=== PATIENT | male | born 1955 | race African-American/Black ===

== ENCOUNTER 2019-06-01 01:26 | Emergency (ER) | payer OTHER ==
[2019-06-01] MEDS ORDERED: ALTEPLASE 2 MG/VIAL IV ONE (02:45)
[2019-06-01] MEDS ORDERED: WATER FOR INJ,STERILE 10 ML ONE (02:53)
--- NOTE | 2019-06-01 03:23 | ER ---
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 to lower pelvic area, drain in place. Coronavirus screen: Proceed with normal triage. Ebola Screen: No symptoms or risks identified at this time. Initial Sepsis Screen: Does the patient meet any 2 criteria? No. Patient's initial sepsis screen is negative. Does the patient have a suspected source of infection? No. Patient's initial sepsis screen is negative. Risk Assessment: Do you want to hurt yourself or someone else? Patient reports no desire to harm self or others. Onset of symptoms was June 01, 2019. 01:43 Method Of Arrival: Wheelchair lp1 01:43 Acuity: ELIZABETH 4 lp1 Historical: - Allergies: 01:51 No Known Allergies; lp1 - Home Meds: 01:51 vancomycin intravenous 1200 mg intravenous every 12 hours [Active]; amlodipine 10 mg lp1 tab 1 tab once daily [Active]; losartan 25 mg oral tab 1 tab once daily [Active]; Eliquis 5 mg oral tab 1 tab 2 times per day [Active]; melatonin 5 mg Oral tab nightly [Active]; metoprolol tartrate 25 mg Oral tab 1 tab 2 times per day [Active]; Lasix Oral [Active]; - PMHx: 01:51 anoxic brain injury; L sided weakness; Prostate cancer; Kidney stones; Anemia; lp1 - PSHx: 01:51 back surgery; Prostatectomy; Rotator cuff surgery; Drain to pelvic area; lp1 - Immunization history:: Adult Immunizations up to date. - Social history:: Smoking status: Patient denies any tobacco usage or history of. Screenin:51 Abuse screen: Denies threats or abuse. Denies injuries from another. Nutritional lp1 screening: No deficits noted. Tuberculosis screening: No symptoms or risk factors identified. 01:57 Fall Risk No fall in past 12 months (0 pts). Secondary diagnosis (15 points) impaired rv mobility, No IV (0 pts). Ambulatory Aid- Crutches/Cane/Walker (15 pts). Gait- Impaired (20 pts.). Mental Status- Oriented to own ability (0 pts). Total Jessiac Fall Scale indicates High Risk Score (45 or more points). Fall prevention measures have been instituted. Side Rails Up X 2 Family Present and informed to notify staff if the need to leave the bedside As available patient and family educated on Fall Prevention Program and Strategies. Assessment: 01:56 General: Appears in no apparent distress. comfortable, Behavior is calm, cooperative. rv Pain: Denies pain. Neuro: Level of Consciousness is awake, alert, obeys commands, Oriented to person, place, time, situation. Cardiovascular: Patient's skin is warm and dry. Respiratory: Airway is patent. : TUBE DRAINING FLUIDS AROUND THE BLADDER. Derm: Skin is intact. 01:58 Reassessment: PICC LINE ASSESSED. RED PORT IS FLUSHING AND WITH GOOD BLOOD RETURN. THE rv OTHER PORT IS HARD TO FLUSH AND PULL BLOOD, BUT STILL FLUSHES WITH ENOUGH PRESSURE AND ABLE TO PULL 3ML OF BLOOD. 03:44 Reassessment: Patient and/or family updated on plan of care and expected duration. Pain ea level reassessed. Patient is alert, oriented x 3, equal unlabored respirations, skin warm/dry/pink. Discharge instruction given to patient and family, both verbalized the understanding of instruction. Pt left ED via wheelchair accompanied by family. Vital Signs: 01:43 BP 156 / 94; Pulse 98; Resp 18; Temp 98.3(O); Pulse Ox 98% on R/A; Weight 84.37 kg (R); lp1 Height 6 ft. 3 in. (190.50 cm); Pain 0/10; 03:43 BP 127 / 73; Pulse 90; Resp 18; Pulse Ox 99% ; ea 01:43 Body Mass Index 23.25 (84.37 kg, 190.50 cm) lp1 ED Course: 01:30 Patient arrived in ED. ag3 01:38 Agapito Lagos MD is Attending Physician. gil 01:47 Triage completed. lp1 01:47 Arm band placed on. lp1 01:51 Patient has correct armband on for positive identification. lp1 01:56 David Patton, RN is Primary Nurse. rv 03:43 No provider procedures requiring assistance completed. Patient did not have IV access ea during this emergency room visit. Administered Medications: 02:51 Drug: Cathflo Activase 2 mg Route: IV Thrombolytics; rv 03:30 Follow up: Response: No adverse reaction ea Outcome: 03:23 Discharge ordered by . gil 03:43 Discharged to home via wheelchair, with family. ea 03:43 Condition: stable 03:43 Discharge instructions given to patient, family, Instructed on discharge instructions, follow up and referral plans. Demonstrated understanding of instructions, follow-up care. 03:45 Patient left the ED. ea Signatures: Agapito Lagos MD MD cha Pena, Laura, RN RN lp1 Sheela Hutchison RN LORE ea David Patton, RN LORE Rose Mary Waldrop
--- NOTE | 2019-06-01 03:23 | EDPHYS ---
Physician Documentation [facility] Name: Eddie Ureña III Age: 64 yrs Sex: Male : 1955 Arrival Date: 06/01/2019 Time: 01:30 Bed 8 Private MD: ED Physician Agapito Lagos HPI: 05/31 02:08 This 64 yrs old Black Male presents to ER via Wheelchair with complaints of IV PROBLEM. gil 02:08 . Onset: The symptoms/episode began/occurred 2 day(s) ago. Severity of symptoms: At [facility] their worst the symptoms were mild in the emergency department the symptoms are unchanged. The patient has not experienced similar symptoms in the past. Historical: - Allergies: 01:51 No Known Allergies; lp1 - Home Meds: 01:51 vancomycin intravenous 1200 mg intravenous every 12 hours [Active]; amlodipine 10 mg lp1 tab 1 tab once daily [Active]; losartan 25 mg oral tab 1 tab once daily [Active]; Eliquis 5 mg oral tab 1 tab 2 times per day [Active]; melatonin 5 mg Oral tab nightly [Active]; metoprolol tartrate 25 mg Oral tab 1 tab 2 times per day [Active]; Lasix Oral [Active]; - PMHx: 01:51 anoxic brain injury; L sided weakness; Prostate cancer; Kidney stones; Anemia; lp1 - PSHx: 01:51 back surgery; Prostatectomy; Rotator cuff surgery; Drain to pelvic area; lp1 - Immunization history:: Adult Immunizations up to date. - Social history:: Smoking status: Patient denies any tobacco usage or history of. ROS: 02:11 Constitutional: Negative for fever, chills, and weight loss, Eyes: Negative for injury, gil pain, redness, and discharge, ENT: Negative for injury, pain, and discharge, Neck: Negative for injury, pain, and swelling, Cardiovascular: Negative for chest pain, palpitations, and edema, Respiratory: Negative for shortness of breath, cough, wheezing, and pleuritic chest pain, Abdomen/GI: Negative for abdominal pain, nausea, vomiting, diarrhea, and constipation, Back: Negative for injury and pain, : Negative for injury, bleeding, discharge, and swelling, Skin: Negative for injury, rash, and discoloration, Neuro: Negative for headache, weakness, numbness, tingling, and seizure, Psych: Negative for depression, anxiety, suicide ideation, homicidal ideation, and hallucinations, Allergy/Immunology: Negative for hives, rash, and allergies, Endocrine: Negative for neck swelling, polydipsia, polyuria, polyphagia, and marked weight changes, Hematologic/Lymphatic: Negative for swollen nodes, abnormal bleeding, and unusual bruising. 02:11 MS/extremity: Positive for blocked purple port of picc line. Exam: 02:11 Constitutional: This is a well developed, well nourished patient who is awake, alert, gil and in no acute distress. Head/Face: Normocephalic, atraumatic. Eyes: Pupils equal round and reactive to light, extra-ocular motions intact. Lids and lashes normal. Conjunctiva and sclera are non-icteric and not injected. Cornea within normal limits. Periorbital areas with no swelling, redness, or edema. ENT: Nares patent. No nasal discharge, no septal abnormalities noted. Tympanic membranes are normal and external auditory canals are clear. Oropharynx with no redness, swelling, or masses, exudates, or evidence of obstruction, uvula midline. Mucous membranes moist. Neck: Trachea midline, no thyromegaly or masses palpated, and no cervical lymphadenopathy. Supple, full range of motion without nuchal rigidity, or vertebral point tenderness. No Meningismus. Chest/axilla: Normal chest wall appearance and motion. Nontender with no deformity. No lesions are appreciated. Cardiovascular: Regular rate and rhythm with a normal S1 and S2. No gallops, murmurs, or rubs. Normal PMI, no JVD. No pulse deficits. Respiratory: Lungs have equal breath sounds bilaterally, clear to auscultation and percussion. No rales, rhonchi or wheezes noted. No increased work of breathing, no retractions or nasal flaring. Abdomen/GI: Soft, non-tender, with normal bowel sounds. No distension or tympany. No guarding or rebound. No evidence of tenderness throughout. Back: No spinal tenderness. No costovertebral tenderness. Full range of motion. Male : Normal genitalia with no discharge or lesions. Skin: Warm, dry with normal turgor. Normal color with no rashes, no lesions, and no evidence of cellulitis. Neuro: Awake and alert, GCS 15, oriented to person, place, time, and situation. Cranial nerves II-XII grossly intact. Motor strength 5/5 in all extremities. Sensory grossly intact. Cerebellar exam normal. Normal gait. Psych: Awake, alert, with orientation to person, place and time. Behavior, mood, and affect are within normal limits. 02:11 Musculoskeletal/extremity: ROM: no acute changes, Circulation is intact in all extremities. Sensation intact. Compartment Syndrome exam of affected extremity: is normal. DVT Exam: no pain, no swelling, no tenderness, negative Homans' sign noted on exam, no appreciated bluish discoloration, no erythema, no increased warmth. Vital Signs: 01:43 BP 156 / 94; Pulse 98; Resp 18; Temp 98.3(O); Pulse Ox 98% on R/A; Weight 84.37 kg (R); lp1 Height 6 ft. 3 in. (190.50 cm); Pain 0/10; 03:43 BP 127 / 73; Pulse 90; Resp 18; Pulse Ox 99% ; ea 01:43 Body Mass Index 23.25 (84.37 kg, 190.50 cm) lp1 MDM: 01:38 Patient medically screened. [facility] 03:26 Data reviewed: vital signs, nurses notes. [facility] Administered Medications: 02:51 Drug: Cathflo Activase 2 mg Route: IV Thrombolytics; rv 03:30 Follow up: Response: No adverse reaction [place] Disposition: 06/01/19 03:23 Discharged to Home. 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 - Condition is Stable. - Discharge Instructions: PICC Home Guide, PICC Insertion, Care After. - Medication Reconciliation Form, Thank You Letter, Antibiotic Education, Prescription Opioid Use form. - Follow up: Private Physician; When: 2 - 3 days; Reason: Recheck today's complaints, Continuance of care, Re-evaluation by your physician. - Problem is new. - Symptoms have improved. Signatures: Agapito Lagos MD MD cha Pena, Laura, RN RN lp1 Sheela Hutchison RN RN ea Vicente, Ronaldo, RN RN rv Corrections: (The following items were deleted from the chart) 03:45 03:23 06/01/2019 03:23 Discharged to Home. Impression: Other specified complications of ea cardiac and vascular prosthetic devices, implants and grafts - initial encounter, blocked port on PICC line. Condition is Stable. Discharge Instructions: PICC Home Guide, PICC Insertion, Care After. Forms are Medication Reconciliation Form, Thank You Letter, Antibiotic Education, Prescription Opioid Use. Follow up: Private Physician; When: 2 - 3 days; Reason: Recheck today's complaints, Continuance of care, Re-evaluation by your physician. Problem is new. Symptoms have improved. gil
[2019-06-01 03:50] VITALS: TEMP 98.3
[2019-06-01 03:51] VITALS: BP 127/73; O2SAT 99
== END 2019-06-01 03:45 | disposition home or self-care (01) ==
LOC: ER 01:26
DX: T82.898A Other specified complication of vascular prosthetic devices, implants and grafts, initial encounter (principal); X58.XXXA Exposure to other specified factors, initial encounter; C61 Malignant neoplasm of prostate; D64.9 Anemia, unspecified; Z79.899 Other long term (current) drug therapy; Z79.01 Long term (current) use of anticoagulants
CPT/HCPCS: 92977; 99291; J2997

== ENCOUNTER 2024-05-13 07:40 | Day surgery (SDC) | payer OTHER ==
[2024-05-08 13:59] LABS: Absolute Eosinophils 0.1 K/uL (0-0.5); Absolute Lymphocytes (CBC) 1.3 K/uL (0.7-4.9); Absolute Monocytes 0.6 K/uL (0.1-1.3); Absolute Neutrophil 3.1 K/uL (1.8-8.0); Basophils % 0.4 % (0-1.3); Eosinophils % 2.1 % (0-4.4); Hematocrit 43.3 % (39.6-49.0); Hemoglobin 15.1 g/dL (13.6-17.9); Lymphocytes % 24.9 % (15.3-44.8); MCH 27.6 pg (27.0-35.0); MCV 78.7 fL (80-100); MPV 8.9 fL (7.6-11.3); Monocytes % 12.1 % (3.3-12.3); Neutrophils % 60.5 % (41.7-73.7); Nucleated Red Blood Cells % 0.1 % (0-0); Platelets 200 thou/uL (152-406); Red Cell Distribution Width 15.2 % (12.1-15.2)
[2024-05-08 14:08] LABS: PT Prothrombin Time 12.8 SECONDS (10-13.0); Protime INR 1.13
[2024-05-08 14:20] LABS: Anion Gap 6.4 mEq/L (5.0-15.0); Potassium 3.4 mEq/L (3.5-5.1)
[2024-05-13] MEDS: NA CHLORIDE 0.9% 1,000 ML ONE (08:15)
[2024-05-13] MEDS ORDERED: LIDOCAINE 1% MPF 2 ML AMPULE ONE (09:21)
[2024-05-13] MEDS ORDERED: propofoL 200 MG/20 ML VIAL IV ONE (09:21)
[2024-05-13 11:38] VITALS: BP 147/84; TEMP 97.8; O2SAT 97
== END 2024-05-13 11:05 | disposition home or self-care (01) ==
LOC: OR 07:40
PROVIDERS: ATTEND Internal Medicine Gastroenterology
PROC: 0DBK8ZX Excision of Ascending Colon, Via Natural or Artificial Opening Endoscopic, Diagnostic (ICD-10-PCS; principal; 2024-05-13 09:15)
DX: Z12.11 Encounter for screening for malignant neoplasm of colon (principal); D12.2 Benign neoplasm of ascending colon
CPT/HCPCS: 93005; 85025; 80048; 36415; 85610; 82947; 88305; 85730; 45385; J2704; J7030